=== PATIENT | female | born 1990 | race Caucasian/White ===

== ENCOUNTER 2017-03-29 14:02 | Emergency (ER) | payer BC ==
[~2017-03-29] VITALS: Ht 167.6 cm; Wt 62.0 kg
[2017-03-29 14:18] VITALS: BP 108/72
[2017-03-29] MEDS ORDERED: TAM75C PO (15:12)
== END 2017-03-29 16:46 | disposition home or self-care (01) ==
LOC: ER 14:02
DX: J11.1 Influenza due to unidentified influenza virus with other respiratory manifestations (principal); Z88.6 Allergy status to analgesic agent; Z88.2 Allergy status to sulfonamides
CPT/HCPCS: 99283

== ENCOUNTER 2019-10-06 20:48 | Emergency (ER) | payer BC, MEDICAID ==
[~2019-10-06] VITALS: Ht 167.6 cm; Wt 70.5 kg
[2019-10-06] MEDS ORDERED: iohexol 350MG/ML 100ml bottle IV ONE (22:36)
[2019-10-07 00:06] VITALS: BP 128/94
== END 2019-10-07 00:08 | disposition home or self-care (01) ==
LOC: ER 20:48 → EEVIPCON 20:48 → ER 10-07 00:08
DX: S10.93XA Contusion of unspecified part of neck, initial encounter (principal); S40.011A Contusion of right shoulder, initial encounter; F12.90 Cannabis use, unspecified, uncomplicated; Z72.89 Other problems related to lifestyle; Z88.2 Allergy status to sulfonamides; Z88.5 Allergy status to narcotic agent; Y04.8XXA Assault by other bodily force, initial encounter; Y93.89 Activity, other specified; Y92.89 Other specified places as the place of occurrence of the external cause; Y99.8 Other external cause status
CPT/HCPCS: 70498; 99285; Q9967

== ENCOUNTER 2021-02-28 17:20 | Emergency (ER) | payer MEDICAID ==
[~2021-02-28] VITALS: Ht 167.6 cm; Wt 79.0 kg
[2021-02-28 17:39] VITALS: BP 120/81
[2021-02-28] MEDS ORDERED: normal saline 1000ML IV soln IV ONE (17:55)
[2021-02-28] MEDS ORDERED: BAMLANIVIMAB&ETESEVIMAB 2100mg 2,100 MG in normal saline 100ml IV soln 100 ML IV ONE (18:30)
[2021-02-28 18:50] LABS: BASOPHILS % (AUTO) 0.3 % (0-1); EOSINOPHILS % (AUTO) 0 % (0-6); HEMATOCRIT 47.4 % (35.0-45.0); HEMOGLOBIN 16.2 g/dl (12.0-16.0); LYMPHOCYTES # (AUTO) 1.8 X10'3 (1.1-4.8); LYMPHOCYTES % (AUTO) 29.6 % (21-51); MEAN CORPUSCULAR HEMOGLOBIN 28.1 PG (27.0-31.0); MEAN CORPUSCULAR HGB CONC 34.2 g/dL (33.0-36.5); MEAN CORPUSCULAR VOLUME 82.1 FL (78-98); MEAN PLATELET VOLUME 8.8 FL (7.4-10.4); MONOCYTES # (AUTO) 0.5 X10'3 (0-0.9); MONOCYTES % (AUTO) 8.6 % (2-12); NEUTROPHILS # (AUTO) 3.7 X10'3 (1.8-7.7); NEUTROPHILS % (AUTO) 61.5 % (42-75); PLATELET COUNT 214 X10'3 (140-440); RED BLOOD COUNT 5.77 X10'6 (4.20-5.60); RED CELL DISTRIBUTION WIDTH 14.4 % (11.5-14.5)
[2021-02-28 18:57] LABS: ALANINE AMINOTRANSFERASE 38 U/L (12-78); ALBUMIN 3.8 G/DL (3.4-5.0); ALKALINE PHOSPHATASE 78 IU/L (46-116); ANION GAP 12 (8-16); ASPARTATE AMINO TRANSFERASE 37 U/L (10-37); BILIRUBIN,TOTAL 0.8 MG/DL (0.1-1.0); BLOOD UREA NITROGEN 13 MG/DL (7-18); BUN/CREATININE RATIO 14.4 (6.6-38.0); C-REACTIVE PROTEIN 3.56 MG/DL (0.0-0.5); CALCIUM 8.7 MG/DL (8.5-10.1); CHLORIDE 102 MMOL/L (99-107); GLUCOSE 113 MG/DL (70-104); POTASSIUM 4.2 MMOL/L (3.5-5.1); SODIUM 137 MMOL/L (135-145); TOTAL CARBON DIOXIDE 22.8 MMOL/L (24-32); TOTAL PROTEIN 7.8 G/DL (6.4-8.2); eGFR 74 ML/MIN
[2021-02-28] MEDS ORDERED: CefTRIAXone 2gm/D5W 50ml BAG 50 ML IV ONE (19:05)
[2021-02-28] MEDS ORDERED: acetaminophen 325mg tablet PO ONE (19:05)
[2021-02-28] MEDS ORDERED: DOXYCYCLINE 100MG CAPSULE PO STA ×2 (19:30→19:40)
[2021-02-28] MEDS ORDERED: DOXY-411 PO (19:39)
[2021-02-28] MEDS ORDERED: CASIRIVIMAB/IMDEVIMAB (REGEN-COV) 600mg/600mg inject. SQ ONE ×4 (20:00)
[2021-02-28 20:10] LABS: D-DIMER 1.09 MG/L FEU (0-0.50)
[2021-02-28] MEDS ORDERED: aspirin 81mg tab.chew PO ONE (20:30)
--- NOTE | 2021-02-28 21:25 | NUR ---
Pt given and understands d/c instructions. Ambulatory with a steady gait.
== END 2021-02-28 21:25 | disposition home or self-care (01) ==
LOC: ER 17:22
DX: U07.1 COVID-19 (principal); J12.82 Pneumonia due to coronavirus disease 2019; F12.90 Cannabis use, unspecified, uncomplicated; Z72.89 Other problems related to lifestyle; Z88.2 Allergy status to sulfonamides; Z88.8 Allergy status to other drugs, medicaments and biological substances; Z79.2 Long term (current) use of antibiotics
CPT/HCPCS: 36415; 71045; 80053; 83605; 84145; 85025; 85379; 86140; 87040; 93005; 99285; M0243; Q0244